=== PATIENT | male | born 1955 | race African-American/Black ===

== ENCOUNTER 2017-01-05 12:07 | Day surgery (SDC) | payer OTHER ==
--- NOTE | ~2017-01-05 | EGD ---
EGD REPORT [facility] [address] [place] 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 Estimated blood loss: None. Procedure: Pre-Anesthesia Assessment: - ASA Grade Assessment: III - A patient with severe systemic disease. After obtaining informed consent, the endoscope was passed under direct vision. Throughout the procedure, the patient's blood pressure, pulse, and oxygen saturations were monitored continuously. The Endoscope was introduced through the mouth, and advanced to the second part of duodenum. Findings: Endosonographic Finding : An anechoic lesion suggestive of a cyst was identified in the pancreatic body. The lesion measured 47 mm by 44 mm in maximal cross-sectional diameter. There was a single compartment without septae. The outer wall of the lesion was thick. There was no associated mass. There was no internal debris within the fluid-filled cavity. Diagnostic needle aspiration for fluid was performed. Color Doppler imaging was utilized prior to needle puncture to confirm a lack of significant vascular structures within the needle path. One pass was made with the 22 gauge needle using a transgastric approach. No stylet was used. The amount of fluid collected was 30 mL. The fluid was clear, opaque and brown. Sample(s) were sent for amylase, cytology and CEA. There was no sign of significant endosonographic abnormality in the pancreatic head. The pancreas was well visualized, no pathologic lymphadenopathy, no masses, no calcifications, the pancreatic duct was well visualized from ampulla to tail, the pancreatic duct was regular in contour. There was no sign of significant endosonographic abnormality in the common bile duct. No lymphadenopathy seen. There was no sign of significant endosonographic abnormality in the examined duodenum. Endosonographic images of the stomach were unremarkable. EGD REPORT [address] [place]. [address] NAME: RASHAD RUBIN : 51 STATUS : REG [facility] [place] PAT#: [id number] AGE: 61 ADM/REG DATE : 01/05/17 MR#: [id number] REPORT SERV DATE: 01/05/17 DICTATED BY: JUSTIN WHITNEY DATE: 01/05/17 REPORT STATUS : Draft TRANSCRIBED BY: [employer] DATE: 01/05/17 There was no sign of significant endosonographic abnormality in the esophagus. Impression: - A 47 mm by 44 mm cystic lesion was seen in the pancreatic body. - There was no sign of significant pathology in the pancreatic head. - There was no sign of significant pathology in the common bile duct. - There was no sign of significant pathology in the examined duodenum. - Endosonographic images of the stomach were unremarkable. - There was no sign of significant pathology in the esophagus. Recommendation: - Return to previous diet. - Continue present medications. - Await path results and await tumor markers. - Cipro (ciprofloxacin) 500 mg PO BID for 3 days. Procedure Code(s): --- Professional --- 25924, Esophagogastroduodenoscopy, flexible, transoral; with transendoscopic ultrasound-guided intramural or transmural fine needle aspiration/biopsy(s) (includes endoscopic ultrasound examination of the esophagus, stomach, and either the duodenum or a surgically altered stomach where the jejunum is examined distal to the anastomosis) Diagnosis Code(s): --- Professional --- K86.2, Cyst of pancreas D49.0, Neoplasm of unspecified behavior of digestive system CPT copyright 2013 [employer]. All rights reserved. The codes documented in this report are preliminary and upon on car supervisor review may be revised to meet current compliance requirements. JUSTIN WHITNEY, 01/05/2017 4:18 PM Number of Addenda: 0 Note Initiated On: 01/05/2017 3:43 PM EGD REPORT [address] [place]. [address] NAME: RASHAD RUBIN : [birth year] STATUS : REG [facility] [place] PAT#: [id number] AGE: 61 ADM/REG DATE : 01/05/17 MR#: [id number] REPORT SERV DATE: 01/05/17 DICTATED BY: JUSTIN WHITNEY DATE: 01/05/17 REPORT STATUS : Draft TRANSCRIBED BY: [employer] DATE: 01/05/[address] [place] [address] [place] [address]
[~2017-01-05 12:07] MED LIST: AMB5 PO; CHEMOTHERAPY; DIOV80 PO; DSS PO; GEMCITABINE IV; IMOD PO; KRILLOIL PO; LANTUS SC; NORCO1 TAB PO; NOVOLOG SC; PCET PO; PEP20 PO; PR12.5 PO; PR25 PO; PROTONIX PO; ZOFRAN4 PO; ZOFRAN8 PO
[2017-01-05 12:32] LABS: BASOPHILS 1.6 %; BASOPHILS ABSOLUTE 0.09 10/3/uL (0.0-0.16); EOSINOPHILS 6.1 %; EOSINOPHILS ABSOLUTE 0.35 10/3/uL (0.0-0.53); HEMATOCRIT 33.9 % (40.0-51.0); HEMOGLOBIN 10.8 g/dL (13.6-17.8); IMMATURE GRANULOCYTES 0.5 %; IMMATURE GRANULOCYTES ABSOLUTE 0.03 10/3/uL (0.0-0.11); LYMPHOCYTES ABSOLUTE 1.77 10/3/uL (0.67-4.30); MANUAL DIFF NO %; MEAN CORPUS HGB CONC 31.9 g/dL (32.0-36.0); MEAN CORPUSCULAR HEMOGLOB 26.6 pg (26.0-34.0); MEAN CORPUSCULAR VOLUME 83.5 fL (80-100); MEAN PLATELET VOLUME 10.3 fL (9.2-13.0); MONOCYTES 11.6 %; MONOCYTES ABSOLUTE 0.66 10/3/uL (0.21-1.20); NEUTROPHILS 49.2 %; NEUTROPHILS ABSOLUTE 2.81 10/3/uL (2.02-8.40); PLATELET COUNT 333 10/3/uL (150-400); RBC DISTRIBUTION WIDTH 18.3 % (12.0-16.0); RED CELL COUNT 4.06 10/6/uL (4.7-6.1); WHITE BLOOD CELLS 5.7 10/3/uL (4.5-10.5)
[2017-01-05 12:50] LABS: BUN (BLOOD UREA NITROGEN) 16 MG/DL (6-23); CHLORIDE, SERUM 101 MMOL/L (96-112); CO2 (CARBON DIOXIDE) 30 MMOL/L (24-34); GFR AFRICAN AMERICAN 82 ML/MIN (>=60); GFR NON AFRICAN AMERICAN 71 ML/MIN (>=60); GLUCOSE, SERUM 156 MG/DL (60-99); POTASSIUM, SERUM 3.9 MMOL/L (3.5-5.3); SODIUM, SERUM 135 MMOL/L (135-148)
[2017-01-05 12:54] LABS: CALCIUM, SERUM 9.1 MG/DL (8.5-10.4)
[2017-01-05 18:33] LABS: BD FL SOURCE (NOT ORD) PANCREATIC CYST
[2017-01-05 22:03] LABS: AMYLASE BODY FLUID 64139 U/L
== END 2017-01-05 23:59 | disposition home or self-care (01) ==
LOC: DMU 12:07
PROVIDERS: Anesthesiology; Internal Medicine Gastroenterology
PROC: 0F9G4ZX Drainage of Pancreas, Percutaneous Endoscopic Approach, Diagnostic (ICD-10-PCS; principal; 2017-01-05 13:30)
DX: K86.89 Other specified diseases of pancreas (principal); I10 Essential (primary) hypertension; E11.9 Type 2 diabetes mellitus without complications; M19.90 Unspecified osteoarthritis, unspecified site; N42.9 Disorder of prostate, unspecified; G47.33 Obstructive sleep apnea (adult) (pediatric); G62.9 Polyneuropathy, unspecified; Z98.1 Arthrodesis status; Z99.89 Dependence on other enabling machines and devices; Z85.07 Personal history of malignant neoplasm of pancreas; Z92.21 Personal history of antineoplastic chemotherapy; Z90.411 Acquired partial absence of pancreas; Z90.81 Acquired absence of spleen; Z79.4 Long term (current) use of insulin; Z79.899 Other long term (current) drug therapy; Z98.890 Other specified postprocedural states
CPT/HCPCS: 80048; 82150; 82378; 85025; 88173; 88305; C1725; J1956